=== PATIENT | male | born 1975 ===

== ENCOUNTER 2017-01-05 10:40 | Day surgery (SDC) | payer OTHER ==
[2017-01-05] MEDS ORDERED: Lactated Ringer's 500 ML IV ONE (11:25)
[2017-01-05 11:47] VITALS: BMI 29.3
[2017-01-05] MEDS ORDERED: Midazolam 2 MG/2 ML VIAL ONE (11:49)
[2017-01-05] MEDS ORDERED: Propofol 10 mg/ml Inj (20 ML) ONE (11:49)
[2017-01-05] MEDS ORDERED: ePHEDrine 50 mg/ml Inj ONE (12:16)
[2017-01-05 12:58] VITALS: BP 101/64; PULSE 65; RESP 17; TEMP 96.9; O2SAT 100
== END 2017-01-05 13:41 | disposition home or self-care (01) ==
LOC: H.ENDO 10:40
PROVIDERS: ATTEND Internal Medicine Gastroenterology
DX: K60.3 Anal fistula (principal); E78.5 Hyperlipidemia, unspecified; K63.89 Other specified diseases of intestine; K64.0 First degree hemorrhoids; R10.13 Epigastric pain; K29.70 Gastritis, unspecified, without bleeding; K31.89 Other diseases of stomach and duodenum; B96.81 Helicobacter pylori [H. pylori] as the cause of diseases classified elsewhere; K29.50 Unspecified chronic gastritis without bleeding

== ENCOUNTER 2018-04-10 21:05 | Emergency (ER) | payer OTHER, SELFPAY ==
[2018-04-10 21:05] VITALS: BMI 29.3
[2018-04-10 21:50] VITALS: BP 169/91; PULSE 83; RESP 16; TEMP 98.2; O2SAT 98
[2018-04-10] MEDS ORDERED: Lidocaine 1% (10 ml) Inj INFIL STA (22:49)
[2018-04-10] MEDS ORDERED: Tdap Vaccine 0.5 ml Vial (10-64 yrs) IM ONE ×2 (22:49→23:10)
[2018-04-10] MEDS ORDERED: Lidocaine 1% Inj (20ml) ONE (22:52)
[2018-04-10] MEDS ORDERED: Povidone Iodine Topical 10% Sol ONE (22:54)
--- NOTE | 2018-04-10 23:37 | ED PDOC ---
HPI: Wound Care - HPI Time Seen by Provider: 04/10/18 22:01 Chief Complaint (Nursing): Abnormal Skin Integrity Chief Complaint (Provider): Left 5th digit injury History Per: Patient Exam Limitations: no limitations Onset/Duration Of Symptoms: Mins Quality Of Symptoms: Painful Severity: Mild Pain Scale Rating Of: 3 Additional Complaint(s): 42 yo male with history of high cholesterol presents for evaluation of left 5th digit laceration. PT states he was cutting food and knife slipped. Unknown last tetanus vaccine. Past Medical History Reviewed: Historical Data, Nursing Documentation, Vital Signs Vital Signs: Last Vital Signs Temp 98.2 F 04/10/18 21:47 Pulse 83 04/10/18 21:47 Resp 16 04/10/18 21:47 BP 169/91 H 04/10/18 21:47 Pulse Ox 98 04/10/18 21:47 - Medical History PMH: Hypercholesterolemia Denies: HIV, Chronic Kidney Disease - Family History Family History: States: Unknown Family Hx - Home Medications Home Medications: Ambulatory Orders Medication Instructions Recorded Bacitracin Ointment [Bacitracin] 30 gm TOP BID #1 tube 04/10/18 Cephalexin [Keflex] 500 mg PO BID #14 capsule 04/10/18 - Allergies Allergies/Adverse Reactions: Allergies Allergy/AdvReac Type Severity Reaction Status Date / Time No Known Allergies Allergy Verified 01/05/17 11:47 Review of Systems ROS Statement: Except As Marked, All Systems Reviewed And Found Negative Constitutional: Negative for: Fever, Chills Skin: Positive for: Other Physical Exam - Reviewed Nursing Documentation Reviewed: Yes Vital Signs Reviewed: Yes - Physical Exam Appears: Positive for: Well, Non-toxic, No Acute Distress Head Exam: Positive for: ATRAUMATIC, NORMAL INSPECTION, NORMOCEPHALIC Skin: Positive for: Warm. Negative for: Normal Color (0.5 x 1 cm skin avulsion, attached by 2 mm; sking dawson in appearance ) Eye Exam: Positive for: Normal appearance ENT: Positive for: Normal ENT Inspection Neck: Positive for: Normal Respiratory: Negative for: Accessory Muscle Use, Respiratory Distress Back: Positive for: Normal Inspection Extremity: Positive for: Normal ROM, Other (Strength 5/5 in left 5th digit ). Negative for: Tenderness, Deformity, Swelling Neurologic/Psych: Positive for: Alert. Negative for: Aphasia - ECG O2 Sat by Pulse Oximetry: 98 Medical Decision Making Medical Decision Making: Finger soaked in betadine and water. 0.5 cc 1% lidocaine without epi used for local anesthesia. Necrotic skin removed. Would irrigated with 500cc of NS. Antibiotic ointment and dressing applied. Discussed would care and irrigation twice a day. Disposition - Clinical Impression Clinical Impression: Skin avulsion, Tetanus toxoid vaccination administered at current visit Counseled Patient/Family Regarding: Diagnosis, Need For Followup - Disposition Disposition: Routine/Home Disposition Time: 23:34 Condition: GOOD Prescriptions: Bacitracin Ointment [Bacitracin] 30 gm TOP BID #1 tube Cephalexin [Keflex] 500 mg PO BID #14 capsule Instructions: Wound Care (DC) Forms: [facility] ([place]ine) Print Language: LAO - POA Present On Arrival: None
== END 2018-04-10 23:46 | disposition home or self-care (01) ==
LOC: H.ER 21:05
DX: S61.211A Laceration without foreign body of left index finger without damage to nail, initial encounter (principal); W26.0XXA Contact with knife, initial encounter; Y92.89 Other specified places as the place of occurrence of the external cause; E78.00 Pure hypercholesterolemia, unspecified